=== PATIENT | female | born 1945 | race Caucasian/White ===

== ENCOUNTER 2017-06-26 09:17 | Inpatient (IN) | payer MEDICARE, OTHER ==
[~2017-06-26] VITALS: Ht 160 cm; Wt 70.8 kg
[~2017-06-26 09:17] MED LIST: ANAS1TAB PO; GABA100C4 PO; HYDR-3516 PO
[2017-06-26] MEDS ORDERED: SODIUM CHLORID 0.9% 500 ML IV PRN (10:30)
[2017-06-26] MEDS ORDERED: CHLORHEXIDINE GLUCONATE 4% SOLN 120 ML BTL TOPICAL SCH (10:30)
[2017-06-26] MEDS ORDERED: METOPROLOL TARTRATE 25 MG TAB PO PRN (10:30)
[2017-06-26] MEDS ORDERED: CHLORHEXIDINE GLUCONATE 2 % 1 PACK (2 CLOTHS) TOPICAL PRN (10:30)
[2017-06-26] MEDS ORDERED: LACTATED RINGER'S 1000 ML IV PRN (10:30)
[2017-06-26] MEDS ORDERED: POVIDONE IODINE 7.5% SCRUB 118 ML BOTTLE TOPICAL SCH (10:30)
[2017-06-26] MEDS ORDERED: ceFAZolin 2 GM PREMIX 50 ML IV SCH (10:30)
[2017-06-26] MEDS ORDERED: INSULIN HUMAN REGULAR 1,000 UNITS/10 ML VIAL SQ PRN (10:30)
[2017-06-26] MEDS ORDERED: POVIDONE IODINE 5% (ANTISEPSIS KIT) 4 APPLICATIONS EACH NARE PRN (10:30)
[2017-06-26] MEDS ORDERED: GENTAMICIN SULFATE 80 MG/2 ML VIAL ONE (10:31)
[2017-06-26] MEDS ORDERED: FAMOTIDINE 20 MG/2 ML VIAL ONE (13:01)
[2017-06-26] MEDS ORDERED: ACETAMINOPHEN 1000 MG/100 ML 100 ML IV ONE (13:01)
[2017-06-26] MEDS ORDERED: APREPITANT 40 MG CAP ONE (13:06)
[2017-06-26] MEDS ORDERED: VANCOMYCIN HCL 1000 MG VIAL ONE (13:37)
[2017-06-26] MEDS ORDERED: SODIUM CHLOR 0.9% 250 ML INJ 250 ML ONE (13:37)
[2017-06-26] MEDS ORDERED: BUPIVACAINE/EPINEPHRINE 0.25% 50 ML VIAL ONE (13:51)
--- NOTE | 2017-06-26 14:01 | EKG ---
Date Performed: 06/26/2017 Time Performed: 10:46:15 PTAGE: 72 years EKG: Sinus rhythm NORMAL ECG PREVIOUS TRACING : 07/21/1998 04.24 DOCTOR: Navi Vang Interpretating Date/Time 06/26/2017 13:59:48
--- NOTE | 2017-06-26 14:44 | PD.OP ---
cc: Tommie Casanova MD Operative Report Date of Surgery: Jun 26, 2017 Preoperative Diagnosis: Left ankle bimalleolar fracture, displaced, subacute Postoperative Diagnosis: Left ankle trimalleolar fracture. Procedure: Left ankle open reduction and internal fixation of trimalleolar fracture without fixation of posterior lip. Anesthesia: Gen. Surgeon: Tommie Casanova Career And Technology Education Teacher(s): JANI Martinez The surgical procedure was assisted by my Advanced Registered Nurse Practitioner. My SHOPPING CENTRE MANAGER presence was necessary throughout this case for the manipulation and positioning of the surgical extremity. My SHOPPING CENTRE MANAGER was assisting me throughout the duration of this procedure. The skill set of an Advance Registered Nurse Practitioner was medically necessary to complete this procedure. During the surgical case, the surgical services tech was working at the back table and the Advance Registered Nurse Practitioner was directly assisting me. Operation and Findings: Tourniquet time: 0 minutes at 250 mmHg of pressure Estimated blood loss: 25 cc The patient received intravenous vancomycin and Ancef. After the appropriate anesthesia was administered, the patient's leg was prepped and draped in the usual sterile fashion. We took fluoroscopic analysis of the ankle and identify that there was a small posterior malleolus fragment that was minimally displaced. This was less than 25% of articular cartilage and did not require fixation. We made a standard incision over the lateral aspect of the ankle. We then dissected through the deep fascia down to the fracture site. There was already significant callus that was starting to heal the fracture site which had covered the fracture initially anteriorly laterally and posteriorly. We used fluoroscopic guidance to help us free up the callus and identify the edges of the fracture. The edges of the fracture were well identified. The fracture was irrigated. The fracture was anatomically reduced with a reduction clamp, verified both visually and via fluoroscopy. We then applied a pre-contoured Synthes lateral malleolus plate over the fracture. We initially secured the plate using a non-locking screw in the oblong screw hole. This gave nice compression of the plate to the bone. This also helped hold the fracture anatomic. The mortise was anatomic at this point. We then secured the fracture with multiple distal and proximal locking screws. We made an incision on the medial aspect of the ankle distal to the medial malleolus and placed 2 guidewires in a parallel fashion up the medial malleolus. The medial malleolus remained anatomic during this procedure. We measured the appropriate screws. 2 individual Synthes 4.0 stainless steel partially threaded, short thread, cannulated screws were placed. Both had good purchase. The fracture remained in good position. We thoroughly irrigated. We took final fluoroscopic imaging of the ankle, including an AP, lateral, and mortise view. The fracture and the mortise were anatomic. We found no intra- articular penetration of the screws. The patient had full range of motion of the ankle with no crepitus. No instability was noted. We irrigated the incisions thoroughly. We then closed the deep fascia as much as possible with 0 Vicryl. Skin was closed on both sides with 2-0 Vicryl followed by 3-0 nylon. The leg was dressed and a splint was applied. The postoperative plan is for nonweightbearing to the extremity. Additionally, we will start patient on Lovenox for DVT prophylaxis. Tommie Casanova MD Jun 26, 2017 14:44
[2017-06-26] MEDS ORDERED: SODIUM CHLORIDE 0.9% FLUSH 5 ML FLUSH IVF PRN (14:45)
[2017-06-26] MEDS ORDERED: diphenhydrAMINE HCL 25 MG CAP PO PRN (14:45)
[2017-06-26] MEDS ORDERED: Post-op Orders (for Pharmacy) MISC XX ONE (14:45)
[2017-06-26] MEDS ORDERED: MORPHINE SULFATE 4 MG/ML INJ IV PUSH PRN (14:45)
[2017-06-26] MEDS ORDERED: ONDANSETRON HCL 4 MG/2 ML VIAL IVP PRN (14:45)
[2017-06-26] MEDS ORDERED: MISCELLANEOUS PHARMACY INFORMATION XX ONE (14:45)
[2017-06-26] MEDS ORDERED: MISCELLANEOUS NURSING INFORMATION XX PRN (14:45)
[2017-06-26] MEDS ORDERED: NALOXONE HCL 0.4 MG/ML AMP IV PRN (14:45)
[2017-06-26] MEDS ORDERED: ENOX40IN SQ (14:50)
[2017-06-26] MEDS ORDERED: ASPI-146 PO (14:50)
[2017-06-26] MEDS ORDERED: NORC5TAB PO (14:50)
--- NOTE | 2017-06-26 15:11 | RADRPT ---
EXAM DATE/TIME: 06/26/2017 14:18 [facility] COMPARISON: No previous studies available for comparison. INDICATIONS : Reduction with screw and plate placement left ankle. MEDICAL HISTORY : None. SURGICAL HISTORY : None. ENCOUNTER: Initial ACUITY: 1 day PAIN SCORE: Non-responsive. LOCATION: Left Ankle. FINDINGS: There are postsurgical changes with operative reduction and internal fixation of the previously seen fracture. The alignment is anatomic. CONCLUSION: Postsurgical changes as above. Teto Gama MD on June 26, 2017 at 15:09 Board Certified Radiologist. This report was verified electronically.
--- NOTE | 2017-06-26 15:21 | HHI.DCPOC ---
Discharge Care Plan Diagnosis: (1) Ankle fracture Your Health Problems Are: Difficulty with ADL Goals to Promote Your Health * To prevent worsening of your condition and complications * To maintain your health at the optimal level Directions to Meet Your Goals Take your medications as prescribed Follow your dietary instruction Follow activity as directed Keep your appointments as scheduled Take your immunizations and boosters as scheduled If your symptoms worsen call your PCP, if no PCP go to Urgent Care Center or Emergency Room Smoking is Dangerous to Your Health. Avoid second hand smoke Call the 24-hour hour crisis hotline for domestic abuse at Tung Guzman Jun 26, 2017 15:21
--- NOTE | 2017-06-26 15:22 | HHI.FF ---
Face to Face Verification Diagnosis: (1) Ankle fracture Physical Therapy Gait training, Transfer training, bed to chair Left LE Weight Bearing: Non WB Left LE Range of Motion: No ROM Nursing Nursing: Leo gunn Dressing Changes: Do not change dressing I have seen patient Natalya Mchugh on 06/26/17. My clinical findings support the need for the requested home health care services because: Limited ability to care for self High risk of falls I certify that my clinical findings support that this patient is homebound because: Post-op weakness Unsteady gait/balance Tung Guzman Jun 26, 2017 15:22
[2017-06-26] MEDS ORDERED: WALKER WHEELS/F1 MIS (15:25)
[2017-06-26] MEDS ORDERED: *ONDANSETRON 4 MG VIAL PERIprocedural Use ONLY ONE (15:35)
[2017-06-26] MEDS ORDERED: DO NOT ADM ANY ANTICOAGULANT DRUGS PRN (16:00)
[2017-06-26] MEDS ORDERED: *morphine SULFATE 8 MG/ML PERIprocedure ONLY ONE (16:47)
[2017-06-26] MEDS ORDERED: *LABETALOL HCL 100 MG/20 ML VIAL PERIprocedural Use ONLY ONE (16:58)
[2017-06-26] MEDS: DEXT 5%-NACL 0.45% 1000 ML INJ 1,000 ML IV SCH ×2 (17:00→22:11)
[2017-06-26 18:46] VITALS: BP 173/71; PULSE 77; RESP 18; TEMP 96.8; O2SAT 96
[2017-06-26] MEDS: ACETAMINOPHEN/HYDROcodone 325 MG/5 MG TAB PO PRN (19:02)
[2017-06-26] MEDS: SODIUM CHLORIDE 0.9% FLUSH 5 ML FLUSH IVF SCH (20:15)
[2017-06-26] MEDS: GABAPENTIN 100 MG CAP PO SCH (20:15)
[2017-06-26] MEDS: DOCUSATE SODIUM 50 MG/SENNA 8.6 MG TAB PO SCH (20:15)
[2017-06-26 20:20] VITALS: BP 142/66; PULSE 82; RESP 16; TEMP 97.7; O2SAT 99
[2017-06-27] VITALS (8 sets, daily range): BP systolic 134–164; BP diastolic 51–70; PULSE 69–89; RESP 16–20; TEMP 95.5–98.6; O2SAT 96–100
[2017-06-27] MEDS: ACETAMINOPHEN/HYDROcodone 325 MG/5 MG TAB PO PRN ×5 (04:28→21:54)
[2017-06-27] MEDS: DEXT 5%-NACL 0.45% 1000 ML INJ 1,000 ML IV SCH ×3 (07:27→21:55)
[2017-06-27] MEDS: ANASTROZOLE 1 MG TAB PO SCH (07:29)
[2017-06-27] MEDS: GABAPENTIN 100 MG CAP PO SCH ×2 (07:29→21:53)
[2017-06-27] MEDS: MULTIVITAMINS/MINERALS THERAPEUTIC TAB PO SCH (07:29)
[2017-06-27] MEDS: DOCUSATE SODIUM 50 MG/SENNA 8.6 MG TAB PO SCH ×2 (07:30→21:53)
[2017-06-27] MEDS: MAGNESIUM HYDROXIDE SUSP 30 ML CUP PO PRN (07:30)
[2017-06-27] MEDS: SODIUM CHLORIDE 0.9% FLUSH 5 ML FLUSH IVF SCH ×2 (07:30→21:00)
[2017-06-27 07:36] LABS: AUTOMATED NEUTROPHIL # 6.1 TH/MM3 (1.8-7.7); BASOPHIL % 0.2 % (0.0-2.0); HEMATOCRIT 31.5 % (35.0-46.0); HEMO FLAGS DIFF FINAL; LYMPH % 13.2 % (9.0-44.0); LYMPHOCYTE # 1.1 TH/MM3 (1.0-4.8); MEAN CELL VOLUME 107.7 FL (80.0-100.0); MEAN CORPUSCULAR HEMOGLOBIN 38.1 PG (27.0-34.0); MEAN CORPUSCULAR HGB CONC 35.4 % (32.0-36.0); MONO % 10.6 % (0.0-8.0); PLATELET COUNT 227 TH/MM3 (150-450); RED BLOOD COUNT 2.92 MIL/MM3 (4.00-5.30); RED CELL DISTRIBUTION WIDTH 13.9 % (11.6-17.2); WHITE BLOOD COUNT 8.1 TH/MM3 (4.0-11.0)
--- NOTE | 2017-06-27 12:16 | PD.ORT.PN ---
Subjective Post Op Day #: 1 Subjective Remarks The patient is OOB in chair with minimal pain to her ankle. Patient requesting rehab. Objective Vitals Vital Signs Date Time Temp Pulse Resp B/P (MAP) Pulse Ox O2 Delivery O2 Flow Rate FiO2 06/27/17 11:54 95.5 76 20 148/51 (83) 99 06/27/17 08:00 96.3 69 20 164/65 (98) 99 06/27/17 03:00 96.3 86 16 138/59 (85) 96 06/27/17 01:30 96.6 82 16 142/56 (84) 100 06/26/17 20:20 97.7 82 16 142/66 (91) 99 06/26/17 18:46 96.8 77 18 173/71 (105) 96 06/26/17 18:00 76 16 147/67 (93) 97 Room Air 06/26/17 17:30 74 16 169/79 (109) 97 Room Air 06/26/17 17:00 72 16 172/85 (114) 97 Room Air 06/26/17 16:45 74 16 179/85 (116) 97 Room Air 06/26/17 16:30 76 16 176/86 (116) 97 Room Air 06/26/17 16:15 74 16 182/93 (122) 97 Room Air 06/26/17 16:00 72 16 179/88 (118) 98 Room Air 06/26/17 15:45 80 16 176/86 (116) 99 Room Air 06/26/17 15:30 78 16 182/79 (113) 96 Room Air 06/26/17 15:15 80 16 178/85 (116) 96 Room Air 06/26/17 15:03 97.7 86 16 206/96 (132) 97 Room Air I/O 06/26/17 06/26/17 06/26/17 06/27/17 06/27/17 06/27/17 07:00 15:00 23:00 07:00 15:00 23:00 Intake Total 1350 ml 110 ml Output Total 50 ml 1300 ml Balance 1300 ml -1190 ml Intake IV Total 50 ml 110 ml Other 1300 ml Output Urine Total 1300 ml Estimated Blood Loss 50 ml # Voids 1 2 # Bowel Movements 1 Result Diagram: 06/27/17 0620 Procedures Left ankle open reduction and internal fixation of trimalleolar fracture without fixation of posterior lip. Objective Remarks The patient's splint and dressings are C/D/I. Patient moves toes and has good sensation to light touch x 5. BCR X 5. Assessment & Plan Ortho Post Op Day #: 1 Problem List: Assessment and Plan POD #1: Left ankle open reduction and internal fixation of trimalleolar fracture without fixation of posterior lip. 1. NWB LLE 2. Lovenox for DVT prophylaxis 3. Ice to the left ankle PRN 4. Anticipatory discharge to SNF on Saturday or Saturday. 5. F/U with Dr. Casanova or JANI Hernandez in 1-2 weeks. Tung Guzman Jun 27, 2017 12:15
[2017-06-27] MEDS: ENOXAPARIN SODIUM 40 MG/0.4 ML SYRINGE SQ SCH (13:34)
[2017-06-28 00:20] VITALS: BP 122/58; PULSE 73; RESP 17; TEMP 96.5; O2SAT 96
[2017-06-28] MEDS: ACETAMINOPHEN/HYDROcodone 325 MG/5 MG TAB PO PRN ×3 (06:21→20:14)
[2017-06-28 08:00] VITALS: BP 136/60; PULSE 75; RESP 16; TEMP 97.2; O2SAT 98
[2017-06-28 08:23] VITALS: O2SAT 94
[2017-06-28] MEDS: MULTIVITAMINS/MINERALS THERAPEUTIC TAB PO SCH (08:35)
[2017-06-28] MEDS: GABAPENTIN 100 MG CAP PO SCH ×2 (08:35→20:13)
[2017-06-28] MEDS: ANASTROZOLE 1 MG TAB PO SCH (08:35)
[2017-06-28] MEDS: DOCUSATE SODIUM 50 MG/SENNA 8.6 MG TAB PO SCH ×2 (08:35→20:13)
[2017-06-28] MEDS: SODIUM CHLORIDE 0.9% FLUSH 5 ML FLUSH IVF SCH ×2 (08:36→20:14)
[2017-06-28 12:00] VITALS: BP 122/71; PULSE 70; RESP 18; TEMP 96.8; O2SAT 93
[2017-06-28] MEDS: ENOXAPARIN SODIUM 40 MG/0.4 ML SYRINGE SQ SCH (13:00)
--- NOTE | 2017-06-28 15:29 | PD.ORT.PN ---
Subjective Subjective Remarks The patient is OOB in chair with minimal pain to her ankle unless in a dependent position. Patient reports she is planning on going to [facility] rehab or Saturday. Objective Vitals Vital Signs Date Time Temp Pulse Resp B/P (MAP) Pulse Ox O2 Delivery O2 Flow Rate FiO2 06/28/17 12:00 96.8 70 18 122/71 (88) 93 06/28/17 08:23 94 06/28/17 08:00 97.2 75 16 136/60 (85) 98 06/28/17 00:20 96.5 73 17 122/58 (79) 96 06/27/17 19:35 97.0 72 19 134/63 (86) 06/27/17 17:51 99 21 06/27/17 16:45 98.6 89 18 136/70 (92) 99 06/27/17 16:00 96.1 73 20 147/52 (83) 100 I/O 06/27/17 06/27/17 06/27/17 06/28/17 06/28/17 06/28/17 06:59 14:59 22:59 06:59 14:59 22:59 Intake Total 480 ml 579 ml 1874 ml 720 ml Balance 480 ml 579 ml 1874 ml 720 ml Intake Oral 480 ml 480 ml 480 ml 720 ml IV Total 99 ml 1394 ml # Voids 3 4 4 6 # Bowel Movements 0 1 0 0 Result Diagram: 06/27/17 0620 Procedures Left ankle open reduction and internal fixation of trimalleolar fracture without fixation of posterior lip. Objective Remarks The patient's splint and dressings are C/D/I. Patient moves toes and has good sensation to light touch x 5. BCR X 5. Assessment & Plan Ortho Post Op Day #: 2 Problem List: Assessment and Plan POD #2: Left ankle open reduction and internal fixation of trimalleolar fracture without fixation of posterior lip. 1. NWB LLE 2. Lovenox for DVT prophylaxis 3. Ice to the left ankle PRN 4. Anticipatory discharge to SNF ([facility]) on Saturday night or Saturday morning. 5. F/U with Dr. Casanova or JANI Hernandez in 1-2 weeks. Tung Guzman Jun 28, 2017 15:29
[2017-06-28 16:00] VITALS: BP 139/61; PULSE 84; RESP 18; TEMP 97.3; O2SAT 98
[2017-06-28] MEDS: DEXT 5%-NACL 0.45% 1000 ML INJ 1,000 ML IV SCH (16:37)
[2017-06-28] MEDS: MAGNESIUM HYDROXIDE SUSP 30 ML CUP PO PRN (20:12)
[2017-06-28 20:21] VITALS: BP 145/65; PULSE 90; RESP 17; TEMP 97.3; O2SAT 100
[2017-06-29 00:10] VITALS: BP 126/52; PULSE 89; RESP 17; TEMP 97.9; O2SAT 99
[2017-06-29] MEDS: DEXT 5%-NACL 0.45% 1000 ML INJ 1,000 ML IV SCH ×2 (01:35→11:53)
--- NOTE | 2017-06-29 07:05 | PD.ORT.PN ---
Subjective Subjective Remarks Patient states she is doing well this morning. Minimal to no pain. Plan for discharge to SNF this morning per patient. Objective Vitals Vital Signs Date Time Temp Pulse Resp B/P (MAP) Pulse Ox O2 Delivery O2 Flow Rate FiO2 06/29/17 00:17 Room Air 06/29/17 00:10 97.9 89 17 126/52 (76) 99 06/28/17 21:13 18 06/28/17 20:21 97.3 90 17 145/65 (91) 100 06/28/17 16:00 97.3 84 18 139/61 (87) 98 06/28/17 12:00 96.8 70 18 122/71 (88) 93 06/28/17 08:23 94 06/28/17 08:00 97.2 75 16 136/60 (85) 98 I/O 06/28/17 06/28/17 06/28/17 06/29/17 06/29/17 06/29/17 07:00 15:00 23:00 07:00 15:00 23:00 Intake Total 720 ml 960 ml 240 ml 360 ml Balance 720 ml 960 ml 240 ml 360 ml Intake Oral 720 ml 960 ml 240 ml 360 ml # Voids 6 5 2 5 # Bowel Movements 0 0 0 1 Result Diagram: 06/27/17 0620 Procedures Left ankle open reduction and internal fixation of trimalleolar fracture without fixation of posterior lip. Objective Remarks The patient's splint and dressings are C/D/I. Patient moves toes and has good sensation to light touch x 5. BCR X 5. Assessment & Plan Assessment and Plan POD #3: Left ankle open reduction and internal fixation of trimalleolar fracture without fixation of posterior lip. 1. NWB LLE 2. Lovenox for DVT prophylaxis 3. Ice to the left ankle PRN 4. Discharge to SNF this morning. 5. F/U with Dr. Casanova or JANI Hernandez in 1-2 weeks. Ami Albarado MD Jun 29, 2017 07:05
[2017-06-29 08:00] VITALS: PULSE 81; RESP 16; TEMP 97.1; O2SAT 100
[2017-06-29] MEDS: ANASTROZOLE 1 MG TAB PO SCH (08:41)
[2017-06-29] MEDS: GABAPENTIN 100 MG CAP PO SCH (08:41)
[2017-06-29] MEDS: SODIUM CHLORIDE 0.9% FLUSH 5 ML FLUSH IVF SCH (08:42)
[2017-06-29] MEDS: MULTIVITAMINS/MINERALS THERAPEUTIC TAB PO SCH (08:42)
[2017-06-29] MEDS: DOCUSATE SODIUM 50 MG/SENNA 8.6 MG TAB PO SCH (08:42)
[2017-06-29 10:30] VITALS: BP 155/64; PULSE 93; RESP 18
--- NOTE | 2017-06-30 17:01 | HHI.DS ---
Discharge Summary Admission Date Jun 26, 2017 at 14:39 Discharge Date: Jun 29, 2017 Admitting Diagnosis Left ankle bimalleolar fracture ORIF of the left ankle Diagnosis: (1) Ankle fracture Diagnosis: Principal ICD Codes: S82.899A - Other fracture of unspecified lower leg, initial encounter for closed fracture Procedures Left ankle open reduction and internal fixation of trimalleolar fracture without fixation of posterior lip. Brief History This is a 72 year old female patient with a left ankle bimalleolar fracture. CBC/BMP: 06/27/17 0620 PE at Discharge The patient's splint and dressings are C/D/I. Patient moves toes and has good sensation to light touch x 5. BCR X 5. Hospital Course The patient was admitted to the hospital with a bimalleolar fracture to have ORIF of the left ankle. The patient's surgery went well without complication. The patient is NWB on the LLE. The patient is on a regular diet. The patient was placed on Lovenox followed by ASA for DVT prophylaxis. The patient was discharged to a SNF and will f/u with Dr. Casanova or JANI Hernandez as previously scheduled. Pt Condition on Discharge: Stable Discharge Disposition: Discharge to SNF Discharge Instructions Diet Instructions: As Tolerated, No Restrictions Activities You Can Perform: Non Weight Bearing Activities to Avoid: Strenuous Activity Follow up Referrals: Orthopedics with Tommie Casanova MD New Medications: Aspirin DR (Ecotrin Regular Strength) 325 Mg Tabdr 325 MG PO DAILY for Prevent Blood Clot, #30 TAB 0 Refills Start Aspirin after Lovenox is completed. Enoxaparin Inj (Enoxaparin Inj) 40 Mg/0.4 Ml Syr 40 MG SQ DAILY for Blood Clot Prevention, #10 SYRINGE 0 Refills Start Aspirin after Lovenox is completed. Hydrocodone-Acetaminophen ([place]) 5-325 mg Tab 1-2 TAB PO Q4H PRN for PAIN, #60 TAB 0 Refills Walker with Front Wheels (Walker with Front Wheels) 1 Mis Mis EA .ROUTE DIRECTED, #1 0 Refills Continued Medications: Anastrozole (Anastrozole) 1 Mg Tab 1 MG PO DAILY for Breast Cancer, #30 TAB 0 Refills Gabapentin (Gabapentin) 100 Mg Cap 100 MG PO BID for neuropathy, #60 CAP 0 Refills Discontinued Medications: Hydrocodone-Acetaminophen (Hydrocodone-Acetaminophen) 5-325 mg Tab 1 TAB PO Q8H PRN for PAIN, TAB 0 Refills Tung Guzman Jun 30, 2017 17:01
== END 2017-06-29 13:27 | DRG 494 ==
LOC: HSDC 09:17 → HSDI 14:39 → N06A 18:42
PROVIDERS: ADMIT Orthopaedic Surgery; ATTEND Orthopaedic Surgery
PROC: 0QSH04Z Reposition Left Tibia with Internal Fixation Device, Open Approach (ICD-10-PCS; 2017-06-26)
PROC: 0QSK04Z Reposition Left Fibula with Internal Fixation Device, Open Approach (ICD-10-PCS; principal; 2017-06-26 13:07)
DX: S82.852A Displaced trimalleolar fracture of left lower leg, initial encounter for closed fracture (principal); Z85.3 Personal history of malignant neoplasm of breast; Z92.21 Personal history of antineoplastic chemotherapy; Z92.3 Personal history of irradiation
CPT/HCPCS: 73600; 76000; 85025; 93005; 94150; C1713; J0131; J0690; J1580; J1650; J2270; J2405; J3370; J7050; J7120; J8501

== ENCOUNTER 2017-08-09 15:48 | Emergency (ER) | payer MEDICARE, MEDICAID ==
[~2017-08-09] VITALS: Ht 160 cm; Wt 60.0 kg
[~2017-08-09 15:48] MED LIST changes: +ASPI-146 PO; +ENOX40IN SQ; -HYDR-3516 PO; +NORC5TAB PO; +WALKER WHEELS/F1 MIS
[2017-08-09 15:51] VITALS: BP 206/86; PULSE 103; RESP 13; TEMP 99.2; O2SAT 99
--- NOTE | 2017-08-09 17:34 | PD ---
HPI Chief Complaint: Abnormal Results Time Seen by Provider: 16:53 Travel History International Travel<30 days: No Contact w/Intl Traveler<30days: No Traveled to known affect area: No History of Present Illness HPI Patient is a 72-year-old female who comes in because her mother was concerned that her left ankle looked red. She had surgery to repair a fracture early June, and she says it has been the same since then. She denies any increase in pain. She denies any increase in redness. She says she just came to satisfy her mother. She denies fever or chills. She denies chest pain or shortness of breath. PFSH Past Medical History Cancer: Yes (breast cancer Left) Cardiovascular Problems: No Diabetes: No Endocrine: No Genitourinary: No Hepatitis: Yes (as a child hep A) Hiatal Hernia: No Immune Disorder: No Musculoskeletal: Yes (broken left ankle, arthritis, mild osteoporosis, previous pelvis and R hip ) Neurologic: Yes (numbness in feet) Psychiatric: No Respiratory: No Thyroid Disease: No ?: Not Past Surgical History AICD: No Body Medical Devices: none Cardiac Surgery: No Ear Surgery: No Endocrine Surgery: No Eye Surgery: No Genitourinary Surgery: No Gynecologic Surgery: Yes (bilat oopherectomy) Joint Replacement: No Oral Surgery: Yes (tonsillectomy) Pacemaker: No Thoracic Surgery: Yes (L lumpectomy, SAMMI port placement/removal) Other Surgery: Yes Social History Alcohol Use: No Tobacco Use: No Substance Use: No Allergies-Medications (Allergen,Severity, Reaction): Coded Allergies: red yeast rice (Verified Allergy, Severe, Rash, 06/26/17) penicillin G (Unverified Adverse Reaction, Severe, Rash, 06/26/17) Uncoded Allergies: CRAB MEAT (Adverse Reaction, Severe, Rash, 06/24/17) Reported Meds & Prescriptions Reported Meds & Active Scripts Active Walker with Front Wheels (Device) 1 Mis Mis Ea .ROUTE DIRECTED Enoxaparin Inj (Enoxaparin Sodium) 40 Mg/0.4 Ml Syr 40 Mg SQ DAILY Start Aspirin after Lovenox is completed. Ecotrin Regular Strength (Aspirin) 325 Mg Tabdr 325 Mg PO DAILY Start Aspirin after Lovenox is completed. [place] (Hydrocodone-Acetaminophen) 5-325 mg Tab 1-2 Tab PO Q4H PRN Reported Gabapentin 100 Mg Cap 100 Mg PO BID Anastrozole 1 Mg Tab 1 Mg PO DAILY Review of Systems General / Constitutional: No: Fever, Chills HENT: No: Headaches, Lightheadedness Cardiovascular: No: Chest Pain or Discomfort Respiratory: No: Shortness of Breath Gastrointestinal: No: Nausea, Vomiting Musculoskeletal: Positive: Pain Skin: No Rash, No Change in Pigmentation Neurologic: No: Weakness, Dizziness Physical Exam Narrative GENERAL: Awake and alert, in no acute distress. SKIN: Focused skin assessment warm/dry. Well healing surgical scars the left ankle. There is no erythema or warmth. No leakage of fluids. HEAD: Atraumatic. Normocephalic. EYES: Pupils equal and round. No scleral icterus. ENT: Mucous membranes pink and moist. CARDIOVASCULAR: Regular rate and rhythm. No murmur appreciated. RESPIRATORY: No accessory muscle use. Clear to auscultation. Breath sounds equal bilaterally. MUSCULOSKELETAL: No obvious deformities. No clubbing. No cyanosis. No edema. Pedal pulses intact. No tenderness to palpation of the ankle. NEUROLOGICAL: Awake and alert. No obvious cranial nerve deficits. Motor grossly within normal limits. Normal speech. Data Data Last Documented VS Vital Signs Date Time Temp Pulse Resp B/P (MAP) Pulse Ox O2 Delivery O2 Flow Rate FiO2 08/09/17 17:03 16 99 Room Air 08/09/17 15:51 99.2 103 206/86 (126) [facility] Medical Decision Making Medical Screen Exam Complete: Yes Emergency Medical Condition: Yes Medical Record Reviewed: Yes Differential Diagnosis Surgical site infection versus ankle sprain versus postop pain Narrative Course Patient is a 72-year-old female who comes in because her mother was concerned that her ankle was red and swollen. Elvin shows no erythema or warmth to suggest infection of the surgical site. Patient reassured. She is advised follow-up her scheduled appointment on Saturday with her orthopedic surgeon. Advised to return as needed for any worsening symptoms. Diagnosis Primary Impression: Ankle fracture Qualified Codes: S82.892E - Other fracture of left lower leg, subsequent encounter for open fracture type I or II with routine healing Patient Instructions: Ankle Fracture (ED), General Instructions Additional Instructions: Follow-up with your orthopedic surgeon as scheduled on Saturday. Return as needed for any worsening symptoms. Disposition: DISCHARGE HOME Condition: Stable Rebeka Bee MD Aug 09, 2017 17:34
[2017-08-09 18:05] VITALS: BP 122/87
== END 2017-08-09 18:06 | disposition home or self-care (01) ==
LOC: NEPC 15:48
DX: S82.892E Other fracture of left lower leg, subsequent encounter for open fracture type I or II with routine healing (principal); X58.XXXD Exposure to other specified factors, subsequent encounter
CPT/HCPCS: 99281